=== PATIENT | male | born 1985 | race Hispanic/Latino ===

== ENCOUNTER 2023-09-12 06:05 | Emergency (ER) | payer OTHER ==
[~2023-09-12] VITALS: Ht 167.6 cm; Wt 86.2 kg
[2023-09-12] MEDS ORDERED: KETOROLAC 60 MG VIAL (30MG/ML) IM ONE (07:00)
[2023-09-12] MEDS ORDERED: ORPHENADRINE CITRATE 30 MG/ML ML IVP ONE (09:00)
[2023-09-12] MEDS ORDERED: ORPHENADRINE CITRATE 30 MG/ML ML IM ONE (09:30)
[2023-09-12] MEDS ORDERED: IBUP-2077 PO (10:16)
[2023-09-12 10:19] VITALS: BP 136/78; PULSE 78; RESP 18; O2SAT 98
== END 2023-09-12 10:22 ==
LOC: EEVIPCON 06:05 → EDH 06:05
DX: M25.521 Pain in right elbow (principal); M54.50 Low back pain, unspecified; M79.89 Other specified soft tissue disorders; Z98.890 Other specified postprocedural states
CPT/HCPCS: 99285; 70450; 71045; 72110; 72170; 72125; 96372 ×2; J1885; J2360